=== PATIENT | male | born 1985 | race Caucasian/White ===

== ENCOUNTER 2024-07-11 11:37 | Emergency (ER) | payer BC, SELFPAY ==
[2024-07-11 11:50] VITALS: BP 140/91
--- NOTE | 2024-07-11 12:23 | ED.GENMED ---
History of Present Illness
General
Chief Complaint: Skin Surface Trauma
Source: patient
Time Seen by Provider: 07/11/24 11:43
History of Present Illness
History of Present Illness:
38-year-old male presenting the emergency department for evaluation after he was hit in the forehead by a hockey puck about 30 minutes prior to arrival sustaining a vertically oriented laceration. No LOC, no headache, no vomiting, no
anticoagulants. Tetanus is up-to-date. No other injury sustained.
Past History
Past History
ED Past Medical History: Psychiatric
ED Past Surgical History: None
Social History
Tobacco: Non-smoker
Alcohol: Occasional
Drug: None
Personal:
Living: with family
Review of Systems
Review of Systems
All Other Systems: ROS reviewed and negative except as documented in HPI and ROS
Phy Exam
Physical Exam
Physical Exam:
GENERAL: Alert , in no apparent distress
EYE: conjunctiva clear
Head: 2 cm vertically oriented partial-thickness laceration. No active bleeding
NECK: Supple,
ENT: mmm.
LUNGS: no acute respiratory distress
NEUROLOGICAL: Alert and oriented
SKIN: Warm and dry, skin intact.
MUSCULOSKELETAL: well perfused.
PSYCH: Normal and appropriate interaction.
Scores
Heart Failure Risk
Heart Failure Risk Score: Not Applicable
Heart Score for Chest Pain Patients
STEMI patient?: Not applicable
Withdrawal Assessment of Alcohol
Withdrawal Assessment Completed?: Not applicable
Course
Vital Signs
Initial and Last Documented VS:
Initial Vital Signs
Temp Pulse Resp BP Pulse Ox
97.8 F 107 18 140/91 100
07/11/24 11:50 07/11/24 11:50 07/11/24 11:50 07/11/24 11:50 07/11/24 11:50
Last Documented Vital Signs
Temp Pulse Resp BP Pulse Ox
97.8 F 107 18 140/91 100
07/11/24 11:50 07/11/24 11:50 07/11/24 11:50 07/11/24 11:50 07/11/24 11:50
Procedures
Laceration Closure
Forehead:
Status of Wound: clean
Size of Wound in cm: 2
Description of Wound Edges: sharp
Anesthesia: 1% Lidocaine with epi
Revision/Debridement: routine- no revision
Type of Closure: layered closure
Skin Closure Material: 6-0 nylon (9) and 6-0 vicryl (3)
Number of sutures: 12
MDM/Problems Addressed
Differential Diagnosis Includes:
Simple laceration, concussion, intracranial bleeding, skull fracture
MDM/Problems Addressed:
38-year-old male presenting to the emergency department for evaluation of laceration to the forehead after getting hit in the head with a hockey puck. No other injuries were sustained and tetanus is up-to-date. Laceration repaired without
difficulty as above. Discussed risk versus benefit of CT imaging at this time patient feels comfortable being discharged home. He will be with family. He is aware of return precautions to the ER. Otherwise stable for discharge home. Suture
removal in 5 to 7 days.
*Pulse Oximetry
Patient hypoxic: no
*Critical Care Note
Total Time (30-74mins, 75-104mins- exclusive of procedures): Not Applicable
ED Attending Note
-
Portions of this chart may have been created with voice recognition software.� Occasional wrong word or��sound alike� substitutions may have occurred due to the inherent limitations of voice recognition software.
Discharge Plan
Departure
Patient Disposition: Home (Routine Discharge)
Date of Disposition: 07/11/24
Time of Disposition: 12:23
Patient with high blood pressure during this ER visit?: No
Discharge Problem:
Forehead laceration
Instructions: Laceration Repair With Stitches (DC)
Referrals:
NONE,* [Family Provider] -
Activity Restrictions/Additional Instructions:
Suture removal in 5 to 7 days
Interventions
Interventions:
*Risk Screen - Suicide Last Done: 07/11/24 11:43
*General Assessment Last Done: 07/11/24 11:43
*Neglect/Abuse Screening Last Done: 07/11/24 11:43
*ED COVID-19 Vaccine History Last Done: 07/11/24 13:02
*Nursing Disposition Last Done: 07/11/24 13:04
ED-Skin Assessment Last Done: 07/11/24 13:03
Discharge Date and Time
Discharge Date/Time: 07/11/24 13:05
Print Language: [place]OT[place]
== END 2024-07-11 13:05 | disposition home or self-care (01) ==
LOC: EMR 11:37
PROVIDERS: EMERGENCY PHYSICIAN Emergency Medicine
DX: S01.81XA Laceration without foreign body of other part of head, initial encounter (principal); W21.220A Struck by ice hockey puck, initial encounter; Z88.3 Allergy status to other anti-infective agents; Z88.0 Allergy status to penicillin; Z88.2 Allergy status to sulfonamides
CPT/HCPCS: 12051; 99282